=== PATIENT | female | born 1980 | race Caucasian/White ===

== ENCOUNTER 2017-12-12 07:34 | Emergency (ER) | payer BC ==
--- NOTE | 2017-12-12 07:59 | Emergency Department Record ---
History of Present Illness - General Chief complaint: Nausea, Vomiting, Diarrhea Stated complaint: IRIS COURTNEY Time Seen by Provider: 12/12/17 07:45 Source: Patient Mode of Arrival: Ambulatory Limitations: No limitations - History of Present Illness Initial comments: The patient is here due to a 2 day course of frequent nausea, low grade fevers and profuse watery diarrhea. She denies any vomiting but is having abdominal cramping. The patient did just get home [place] and did go to [facility] briefly. The patient's also was ill but is now better. 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 MD complaint: Abdominal pain, Diarrhea, Nausea Onset/Timin -: Days(s) Description of Diarrhea: Mucous, Water Location: Diffuse Improves with: None Worsens with: Eating Associated Symptoms: Loss of appetite, Nausea/vomiting - Related Data Allergies Allergy/AdvReac Type Severity Reaction Status Date / Time sulfamethoxazole Allergy RASH Verified 12/12/17 07:45 [From Bactrim] trimethoprim [From Bactrim] Allergy RASH Verified 12/12/17 07:45 Travel Screening - Travel/Exposure Within Last 30 Days Have you traveled within the last 30 days?: Yes Location Detail:: [facility] - Travel Symptoms Symptom Screening: Fever (Subjective), Joint & Muscle Aches, Weakness, Diarrhea , Vomiting, Stomach Pain Review of Systems Constitutional: Denies: Chills, Fever Eyes: Denies: Eye discharge ENT: Denies: Congestion Respiratory: Denies: Cough, Dyspnea Past Medical History - SOCIAL HISTORY Smoking Status: Never smoker Alcohol Use: None Drug Use: None - RESPIRATORY Hx Respiratory Disorders: No - CARDIOVASCULAR Hx Cardio Disorders: No - NEURO Hx Neuro Disorders: No - GI Hx GI Disorders: No - Hx Genitourinary Disorders: No - ENDOCRINE Hx Endocrine Disorders: No - MUSCULOSKELETAL Hx Musculoskeletal Disorders: No - PSYCH Hx Psych Problems: No - HEMATOLOGY/ONCOLOGY Hx Hematology/Oncology Disorders: No Family Medical History Any Significant Family History?: No Physical Exam - General General Appearance: Alert, Oriented x3, Cooperative, No acute distress - Head Head exam: Atraumatic, Normocephalic, Normal inspection - Eye Eye exam: Normal appearance, PERRL, EOMI - Neck Neck exam: Normal inspection, Full ROM. negative: Tenderness - Respiratory Respiratory exam: Normal lung sounds bilaterally. negative: Respiratory distress - Cardiovascular Cardiovascular Exam: Regular rate, Normal rhythm, Normal heart sounds - GI/Abdominal GI/Abdominal exam: Soft, Normal bowel sounds. negative: Rebound, Rigid, Tenderness - Extremities Extremities exam: Normal inspection, Full ROM, Normal capillary refill. negative: Tenderness Course Vital Signs 12/12/17 07:39 Temperature 98.7 F Pulse Rate 88 Respiratory 18 Rate Blood Pressure 112/69 Pulse Ox 99 - Reevaluation(s) Reevaluation #1: The patient is doing better at this time. She is resting comfortably with no new complaints. 12/12/17 09:21 Reevaluation #2: The patient is doing better and her nausea is improved with the Reglan. She denies any AP but does feel mild cramps. Her repeat temp is normal with normal vitals. The patient's BP is slightly low but she states she normally runs a low BP. 12/12/17 10:12 Reevaluation #3: The patient is doing slightly better but is still very nauseated. She denies any AP and has no abdominal tenderness. She is still mildly lightheaded when standing but has had no diarrhea in the ED. She also has not vomited and has had no fever. Due to her nausea and lightheadedness I did recommend hospital admission. I told the patient that the safe-est thing to do by far was to watch her overnight in the hospital for IV hydration. The risks of NOT doing that are that the patient could go home and her dehydration could worsen, she could fall , injure herself, have a stroke and be disabled. The patient understands the risks and accepts the risks. 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 12/12/17 11:52 12/12/17 11:55 Medical Decision Making - Lab Data Result diagrams: 12/12/17 07:50 12/12/17 07:50 Disposition Disposition: Discharge Clinical Impression: Gastroenteritis Disposition: Home, Self-Care Condition: (2) Stable Instructions: Traveler's Diarrhea (ED) Additional Instructions: Please continue the home Zofran and Cipro. Drink plenty of fluids. Please see your family doctor on Friday if not better. Return to the ER for any worsening symptoms. Forms: Patient Portal Access Time of Disposition: 11:53 Quality - Quality Measures Quality Measures: N/A - Blood Pressure Screening View Details: Yes Does Patient Have Any of the Following: No Blood Pressure Classification: Normal BP Reading Systolic Measurement: 112 Diastolic Measurement: 69 Screening for High Blood Pressure: < Normal BP, F/U Not Required > [G8783]
[2017-12-12 08:01] LABS: BASO % 0.4 % (0-6); EOS % 1.6 % (0-6); GRAN % 74.4 % (47-80); HEMATOCRIT 38.8 % (35.0-47.0); LYMPH % 16.6 % (16-45); MEAN CELL VOLUME 89.8 fl (81-97); MEAN CORPUSCULAR HEMOGLOBIN 30.1 pg (27-33); MEAN CORPUSCULAR HGB CONC 33.5 g/dl (32-36); MEAN PLATELET VOLUME 9.3 fl (7.4-10.4); PLATELET COUNT 188 K/uL (130-400); RED BLOOD COUNT 4.32 M/uL (3.80-5.40); RED CELL DISTRIBUTION WIDTH 12.2 % (11.5-14.5); WHITE BLOOD COUNT W/O DIFF 6.9 K/uL (4.2-12.2)
[2017-12-12] MEDS: ONDANSETRON HCL IV 4 MG/2 ML VIAL IV ONE (08:03)
[2017-12-12] MEDS: 0.9 % SODIUM CHLORIDE 1,000 ML BAG IV ONE ×2 (08:03→09:50)
[2017-12-12 08:12] LABS: BLOOD UREA NITROGEN 13 mg/dL (6-20); CREATININE 0.7 mg/dL (0.5-0.9); EST GLOMERULAR FILTRATION RATE > 60 mL/min
[2017-12-12 08:13] LABS: TOTAL PROTEIN 6.7 g/dL (6.6-8.7)
[2017-12-12 08:15] LABS: GLUCOSE,RANDOM 76 mg/dL (74-109)
[2017-12-12 08:18] LABS: ALB/GLOB RATIO 1.4 (1.1-1.8); ALBUMIN 3.9 g/dL (4.0-5.0); ALKALINE PHOSPHATASE 40 U/L (35-104); ALT/SGPT 11 U/L (<33); AST/SGOT 17 U/L (10.0-35.0)
[2017-12-12 09:18] LABS: URINE APPEARANCE CLOUDY; URINE BILIRUBIN MODERATE (NEGATIVE); URINE BLOOD MODERATE (NEGATIVE); URINE GLUCOSE (UA) NEGATIVE (NEGATIVE); URINE KETONE 40 mg/dL (NEGATIVE); URINE LEUKOCYTE ESTERASE SMALL (NEGATIVE); URINE NITRITE NEGATIVE (NEGATIVE); URINE UROBILINOGEN 0.2 E.U./dL (0.20 - 1.00)
[2017-12-12 09:28] LABS: URINE COLOR DARK YELLOW
[2017-12-12 09:32] LABS: URINE WBC >50 (0-2/hpf)
[2017-12-12 09:33] LABS: URINE BACTERIA 2+
[2017-12-12] MEDS: METOCLOPRAMIDE HCL 10 MG/2 ML VIAL IVP ONE (09:49)
[2017-12-12] MEDS: DIPHENHYDRAMINE HCL 50 MG/ML VIAL IVP ONE (09:50)
[2017-12-12] MEDS: CIPROFLOXACIN LACTATE/D5W 400 MG/200 ML BAG IVPB ONE (09:50)
[2017-12-12] MEDS: ONDANSETRON HCL IV 4 MG/2 ML VIAL IVP ONE (10:48)
[2017-12-12 11:01] LABS: URINE APPEARANCE CLEAR; URINE BILIRUBIN SMALL (NEGATIVE); URINE BLOOD TRACE-I (NEGATIVE); URINE COLOR YELLOW; URINE GLUCOSE (UA) NEGATIVE (NEGATIVE); URINE KETONE 40 mg/dL (NEGATIVE); URINE LEUKOCYTE ESTERASE NEGATIVE (NEGATIVE); URINE NITRITE NEGATIVE (NEGATIVE); URINE PROTEIN TRACE (NEGATIVE); URINE UROBILINOGEN 0.2 E.U./dL (0.20 - 1.00)
[2017-12-12 11:15] LABS: URINE BACTERIA FEW; URINE RBC 0 - 2 (NONE SEEN); URINE SQUAMOUS EPITHELIAL CELL 0 - 2 /hpf; URINE WBC 0 - 2 (0-2/hpf)
[2017-12-12 11:16] LABS: URINE HYALINE CAST 0 - 2 /lpf; URINE MUCUS LIGHT
[2017-12-12] MEDS ORDERED: 0.9 % SODIUM CHLORIDE 1,000 ML BAG IV ONE (11:23)
== END 2017-12-12 12:07 | disposition home or self-care (01) ==
LOC: ER 07:34
DX: K52.9 Noninfective gastroenteritis and colitis, unspecified (principal); R11.2 Nausea with vomiting, unspecified; R42 Dizziness and giddiness
CPT/HCPCS: 99284 ×2; 96376; 96365; 96375; 96361; 83690; 85025; 80053; 81001; 89055; 84703; 87427; J0744; J2405; J1200; J2765; J7030

== ENCOUNTER 2019-07-26 18:10 | Emergency (ER) | payer BC, OTHER ==
[~2019-07-26 18:10] MED LIST: KETOROLAC 30 MG/ML VIAL IVP ONE
[2019-07-26] MEDS ORDERED: 0.9 % SODIUM CHLORIDE 1000ML 1,000 ML IV SCH (18:15)
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
[2019-07-26 18:38] LABS: ABSOLUTE NEUTROPHIL COUNT 3.91; BASO % 0.3 % (0-6); GRAN % 59.2 % (47-80); HEMATOCRIT 40.6 % (35.0-47.0); HEMOGLOBIN 12.9 gm/dl (11.6-16.0); LYMPH % 33.1 % (16-45); MEAN CELL VOLUME 90.6 fl (81-97); MEAN CORPUSCULAR HEMOGLOBIN 28.8 pg (27-33); MEAN CORPUSCULAR HGB CONC 31.8 g/dl (32-36); MEAN PLATELET VOLUME 9.4 fl (7.4-10.4); MONO % 5.4 % (0-9); PLATELET COUNT 250 K/uL (130-400); RED BLOOD COUNT 4.48 M/uL (3.80-5.40); RED CELL DISTRIBUTION WIDTH 12.2 % (11.5-14.5); WHITE BLOOD COUNT W/O DIFF 6.6 K/uL (4.2-12.2)
[2019-07-26 18:49] LABS: BLOOD UREA NITROGEN 11 mg/dL (6-20); CREATININE 0.7 mg/dL (0.5-0.9); EST GLOMERULAR FILTRATION RATE > 60 mL/min
[2019-07-26 18:50] LABS: TOTAL PROTEIN 7.2 g/dL (6.6-8.7)
[2019-07-26 18:52] LABS: GLUCOSE,RANDOM 108 mg/dL (74-109)
[2019-07-26 18:55] LABS: ALB/GLOB RATIO 1.5 (1.1-1.8); ALBUMIN 4.3 g/dL (4.0-5.0); ALKALINE PHOSPHATASE 30 U/L (35-104); ALT/SGPT 64 U/L (<33); AST/SGOT 84 U/L (10.0-35.0)
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
== END 2019-07-26 20:12 | disposition home or self-care (01) ==
LOC: ER 18:10
DX: S92.034A Nondisplaced avulsion fracture of tuberosity of right calcaneus, initial encounter for closed fracture (principal); S70.01XA Contusion of right hip, initial encounter; S90.01XA Contusion of right ankle, initial encounter; M79.641 Pain in right hand; R10.31 Right lower quadrant pain; V43.52XA Car driver injured in collision with other type car in traffic accident, initial encounter; Y92.411 Interstate highway as the place of occurrence of the external cause
CPT/HCPCS: 70450; 71260; 72125; 74177; 80053; 84703; 85025; 96374; 99285; J1885; J7030

== ENCOUNTER 2019-07-29 10:10 | Emergency (ER) | payer OTHER ==
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
--- NOTE | 2019-07-29 10:56 | RADIOLOGY REPORT ---
EXAMINATION: Right Ribs with Frontal View Chest, Minimum Three Views EXAM DATE: 07/29/2019 10:46 AM TECHNIQUE: AP and oblique views of the right ribs with frontal view of the chest INDICATION: R lower rib pain COMPARISON: None ENCOUNTER: Initial FINDINGS: Chest: The heart, mediastinum and pulmonary vasculature are normal. No lung consolidation or pleu ral effusions are present. Right ribs: There is no acute rib fracture. There is no lytic or blastic bone lesion. IMPRESSION: Normal chest. No rib fractures. Dictated by: Bairon Mchugh DO on 07/29/2019 10:53 AM. .
== END 2019-07-29 11:12 | disposition home or self-care (01) ==
LOC: ER 10:10
DX: S20.211A Contusion of right front wall of thorax, initial encounter (principal); M79.671 Pain in right foot; V43.52XA Car driver injured in collision with other type car in traffic accident, initial encounter; Y92.411 Interstate highway as the place of occurrence of the external cause
CPT/HCPCS: 99283